=== PATIENT | female | born 1990 | race Caucasian/White ===

== ENCOUNTER 2025-02-07 06:24 | Day surgery (SDC) | payer OTHER, SELFPAY | END 2025-02-07 13:05 | disposition home or self-care (01) | LOC: GI 06:24 | PROVIDERS: ATTENDING PHYSICIAN Student in an Organized Health Care Education/Training Program | DX: R10.84 Generalized abdominal pain (principal); R19.5 Other fecal abnormalities; R14.0 Abdominal distension (gaseous); K29.70 Gastritis, unspecified, without bleeding; K51.40 Inflammatory polyps of colon without complications; K31.89 Other diseases of stomach and duodenum; K31.7 Polyp of stomach and duodenum; K25.9 Gastric ulcer, unspecified as acute or chronic, without hemorrhage or perforation; Z80.0 Family history of malignant neoplasm of digestive organs; Z83.719 Family history of colon polyps, unspecified | CPT/HCPCS: 45385; 43239; 88305; 88342 ==

== ENCOUNTER → 2025-10-02 06:40 | Outpatient (REF) | payer OTHER, SELFPAY | LOC: HWRAD 06:40 | PROVIDERS: ATTENDING PHYSICIAN Student in an Organized Health Care Education/Training Program | DX: K58.9 Irritable bowel syndrome, unspecified (principal); K92.89 Other specified diseases of the digestive system | CPT/HCPCS: 74019 ==